=== PATIENT | female | born 1990 | race Caucasian/White ===

== ENCOUNTER 2024-09-18 11:42 | Emergency (ER) | payer SELFPAY ==
[2024-09-18 11:45] VITALS: BP 118/70
[2024-09-18] MEDS: MOTRIN 600 MG PO (13:00)
--- NOTE | 2024-09-18 13:25 | ED.GENMED ---
History of Present Illness
General
Chief Complaint: Fall
Source: patient
Time Seen by Provider: 09/18/24 11:56
History of Present Illness
History of Present Illness:
34-year-old female with no significant past medical history presenting to the emergency department for evaluation after she was walking her family dog and got pulled down injuring her right shoulder now with increased pain with any attempted
movement at the left shoulder. No other injuries were sustained, no head injury, no LOC, no vomiting, no visual changes or any other concerns. Denies any previous history of injury or surgery. Patient arrives already in a sling to the right upper
extremity
Past History
Past History
ED Past Medical History: None
ED Past Surgical History: None
Social History
Tobacco: Non-smoker
Alcohol: Occasional
Drug: None
Personal:
Living: with family
Review of Systems
Review of Systems
All Other Systems: ROS reviewed and negative except as documented in HPI and ROS
Phy Exam
Physical Exam
Physical Exam:
GENERAL: Alert , in no apparent distress
EYE: conjunctiva clear
Head: Normocephalic atraumatic
NECK: Supple,
ENT: mmm.
LUNGS: no acute respiratory distress
NEUROLOGICAL: Alert and oriented
SKIN: Warm and dry, skin intact.
MUSCULOSKELETAL: Right upper extremity: Sling in place. There is tenderness and firmness to the proximal right humerus, unable to assess range of motion at the humerus secondary to pain. Patient able to extend the wrist and digits without any
difficulty. Easily palpable radial pulse. Cap refill less than 2 seconds. Sensation is grossly intact to light touch.
PSYCH: Normal and appropriate interaction.
Scores
Heart Failure Risk
Heart Failure Risk Score: Not Applicable
Heart Score for Chest Pain Patients
STEMI patient?: Not applicable
Withdrawal Assessment of Alcohol
Withdrawal Assessment Completed?: Not applicable
Course
Orders/Labs/Results
Orders:
Orders
09/18/24 12:08
CR Humerus - Right Min 2 View* Urgent
Comment:
Reason For Exam: fall, pain
CR Shoulder, Trauma - Right Urgent
Comment:
Reason For Exam: fall, pain
09/18/24 12:43
Ibuprofen [Motrin] 600 mg PO NOW STA
Vital Signs
Initial and Last Documented VS:
Initial Vital Signs
Temp Pulse Resp BP Pulse Ox
98 F 88 16 118/70 98
09/18/24 11:45 09/18/24 11:45 09/18/24 11:45 09/18/24 11:45 09/18/24 11:45
Last Documented Vital Signs
Temp Pulse Resp BP Pulse Ox
98 F 88 16 118/70 98
09/18/24 11:45 09/18/24 11:45 09/18/24 11:45 09/18/24 11:45 09/18/24 11:45
MDM/Problems Addressed
Differential Diagnosis Includes:
Fracture, sprain, rotator cuff injury, contusion
MDM/Problems Addressed:
34-year-old female presenting to the ER for evaluation of a right shoulder injury noting an accidental fall while walking her dog earlier today. Patient did not take anything for pain prior to arrival. Will treat here with a dose of Motrin. X-ray
of the shoulder and humerus ordered. Patient already has sling in place. Disposition pending
*Radiology
Radiology exam reviewed: preliminary read by ED provider (Proximal right humerus fracture)
*Pulse Oximetry
Patient hypoxic: no
*Critical Care Note
Total Time (30-74mins, 75-104mins- exclusive of procedures): Not Applicable
Patient Management
Escalation/DeEscalation of care consider admission/obs:
Patient advised of the fracture findings. With sling. Prescription for Percocet and Colace sent to patient's pharmacy. Provided with information for outpatient orthopedics. Aware of return precautions.
ED Attending Note
-
Portions of this chart may have been created with voice recognition software.� Occasional wrong word or��sound alike� substitutions may have occurred due to the inherent limitations of voice recognition software.
Discharge Plan
Departure
Patient Disposition: Home (Routine Discharge)
Date of Disposition: 09/18/24
Time of Disposition: :25
Patient with high blood pressure during this ER visit?: No
Discharge Problem:
Closed fracture of proximal end of right humerus
Instructions: Upper Arm Fracture ED
Prescriptions:
New
oxycodone-acetaminophen [Percocet] 5-325 mg tablet
1 tab PO Q6HPRN PRN (Reason: pain) Qty: 8 0RF
Referrals:
Dennis Lewis DO [Family Provider] -
Dion Ferguson MD [Active] -
Interventions
Interventions:
*Risk Screen - Suicide Last Done: 09/18/24 11:45
*General Assessment Last Done: 09/18/24 13:02
*Neglect/Abuse Screening Last Done: 09/18/24 11:45
*ED- Fall Risk Assessment Last Done: 09/18/24 13:02
*ED COVID-19 Vaccine History Last Done: 09/18/24 13:02
*Nursing Disposition Last Done: 09/18/24 13:32
ED-Musculoskeletal Assessment Last Done: 09/18/24 13:02
ED- Neurological Assessment Last Done: 09/18/24 13:02
ED-Skin Assessment Last Done: 09/18/24 13:02
Discharge Date and Time
Discharge Date/Time: 09/18/24 13:38
Print Language: SLOVAK
== END 2024-09-18 13:38 | disposition home or self-care (01) ==
LOC: EMR 11:42
PROVIDERS: EMERGENCY PHYSICIAN Student in an Organized Health Care Education/Training Program; FAMILY PHYSICIAN Family Medicine
DX: S42.291A Other displaced fracture of upper end of right humerus, initial encounter for closed fracture (principal); W19.XXXA Unspecified fall, initial encounter; Y93.K1 Activity, walking an animal
CPT/HCPCS: 99283; 73030; 73060